=== PATIENT | male | born 1970 | race American Indian/Alaskan Native ===

== ENCOUNTER 2017-08-17 13:00 | Emergency (ER) | payer OTHER ==
[2017-08-17 13:49] VITALS: BP 115/83
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
[2017-08-17] MEDS ORDERED: MOTRIN PO ONE (18:06)
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
== END 2017-08-17 20:02 | disposition home or self-care (01) ==
LOC: ED 13:00
DX: M25.522 Pain in left elbow (principal); F17.200 Nicotine dependence, unspecified, uncomplicated; V89.2XXA Person injured in unspecified motor-vehicle accident, traffic, initial encounter; Y93.89 Activity, other specified; Y99.8 Other external cause status; Y92.410 Unspecified street and highway as the place of occurrence of the external cause
CPT/HCPCS: 99284